=== PATIENT | female | born 1940 | race Caucasian/White ===

== ENCOUNTER 2019-04-19 08:05 | Inpatient (IN) | payer OTHER ==
--- NOTE | 2019-04-19 08:20 | PDOC ---
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 Pt states she got tried to get up from sleeping during the night to go to the bathroom, and experienced the vertigo until she went back to sleep. The symptom continued this morning in the same fashion, so she called her son to bring her to the ER. Pt denies recent decreased PO intake, but endorses recent dysuria. Pt denies history of vertigo. Pt denies any recent fevers/chills, ear pain or drainage, headache, vision changes, syncope, chest pain, palpitations, SOB, nausea/vomiting, abdominal pain, diarrhea/constipation, or leg swelling. Allergies: NKDA PCP: Dr. Eligio Cope Social: Pt denies any cigarette, alcohol, or drug use. Pt denies any recent travel or sick contacts. Surgical: no relevant history. Family: no relevant history. 04/19/19 08:47 Past History - Travel Traveled outside of the country in the last 30 days: No Close contact w/someone who was outside of country & ill: No - Past Medical History Allergies/Adverse Reactions: Allergies Allergy/AdvReac Type Severity Reaction Status Date / Time No Known Allergies Allergy Verified 04/19/19 08:10 Home Medications: Ambulatory Orders Unobtainable 04/19/19 COPD: No Diabetes: Yes HTN: Yes Hypercholesterolemia: Yes - Suicide/Smoking/Psychosocial Hx Smoking History: Never smoked Review of Systems - Review of Systems Able to Perform ROS?: Yes Is the patient limited Togolese proficient: No Constitutional: Yes: Weight Stable. No: Chills, Diaphoresis, Fever, Loss of Appetite, Malaise, Weakness HEENTM: No: Blurred Vision, Double Vision, Ear Pain, Ear Discharge, Nose Congestion, Throat Pain, Throat Swelling, Difficulty Swallowing Respiratory: No: Cough, Orthopnea, Shortness of Breath Cardiac (ROS): No: Chest Pain, Edema, Irregular Heart Rate, Lightheadedness, Palpitations, Syncope, Chest Tightness ABD/GI: No: Constipated, Diarrhea, Nausea, Poor Appetite, Poor Fluid Intake, Vomiting : Yes: Burning, Dysuria, Pain. No: Discharge, Frequency, Hematuria, Incontinence, Urgency Musculoskeletal: No: Back Pain, Joint Pain, Muscle Pain, Muscle Weakness Integumentary: No: Rash Neurological: Yes: See HPI, Dizziness (vertigo). No: Headache, Numbness, Paresthesia, Pre-Existing Deficit, Seizure, Weakness, Unsteady Gait, Ataxia Psychiatric: No: Sleep Pattern Change, Change in Appetite Endocrine: No: Increased Urine, Change in Weight Hematologic/Lymphatic: No: Anemia, Blood Clots, Easy Bleeding, Easy Bruising All Other Systems: Reviewed and Negative *Physical Exam - Vital Signs Last Vital Signs Temp Pulse Resp BP Pulse Ox 97.8 F 73 18 149/62 97 04/19/19 08:08 04/19/19 08:08 04/19/19 08:08 04/19/19 08:08 04/19/19 08:08 - Physical Exam Comments: Vitals stable, pt afebrile. Pt appears uncomfortable, normal body habitus. Pt alert and oriented x3. raw stock machine feeder generally intact, muscular strength and sensation intact. Cerebellar exam WNL. No midline spinal tenderness, step-offs, or crepitus. Head normocephalic, atraumatic. Eyes PERRLA, EOMI. No nystagmus or saccade noted. Oropharynx without erythema or exudates, no LAD b/l. No nasal congestion. Cerumen present in R ear, left ear with clear TM. Hearing intact b/l. Clear heart sounds, S1/S2, no JVD, b/l pedal edema, or heart murmur. Clear lung sounds, no respiratory distress, wheezes, crackles, or accessory muscle use. No abdominal or CVA tenderness to palpation, no rebound, no guarding. Abdomen soft, non-distended, and with normoactive bowel sounds. Varicose veins on b/l LE to knee. Skin without jaundice or rash. 04/19/19 08:56 ED Treatment Course - LABORATORY CBC & Chemistry Diagram: 04/19/19 09:05 04/19/19 09:05 Medical Decision Making - Medical Decision Making Pt was seen at bedside, also will be seen by attending Dr. Monaco. Pt presenting with complaints of new-onset vertigo when standing from a lying position. No FNDs on exam. Pts vertigo improved with bedside Janet maneuver. More likely peripheral vertigo considering exam, but will proceed with work-up for electrolyte imbalances, anemia, cardiac enzymes, and non-contrast CT head to evaluate for possible bleed or ischemia. Provided 25 mg PO meclizine and 1 L IV NS for improvement of vertigo. Will continue to reassess pt and monitor for symptomatic improvement. ECG: NSR with 1st degree AV block, intervals WNL (HR 73, DE 210, QRS 78, QTc 434 ). No TWIs or significant ST segment changes. No prior ECG. 04/19/19 08:58 UA negative for infection. Pt taken for head CT Pt states vertigo improved after meclizine and fluids. 04/19/19 09:[address] head with no acute pathology. Pt provided additional 25 mg PO meclizine for continued vertigo. 04/19/19 10:08 CBC WNL Trop <.03 Pt states vertigo improved but still with mild symptoms. Providing 5 mg PO valium. Will reassess. 04/19/19 12:41 Pt did not improve with valium and still unable to ambulate without significant assistance. Pt admitted to Dr. Taveras (admits for Dr. Eligio Cope). 04/19/19 14:17 *DC/Admit/Observation/Transfer Diagnosis at time of Disposition: Vertigo - Discharge Dispostion Condition at time of disposition: Stable Decision to Admit order: Yes - Referrals - Patient Instructions - Post Discharge Activity
[2019-04-19] MEDS ORDERED: MECLIZINE HCL 25 MG TABLET (FP) PO ONE ×2 (08:22→10:24)
[2019-04-19] MEDS ORDERED: MECLIZINE HCL 25 MG TABLET (FP) ONE ×2 (08:23→08:31)
[2019-04-19] MEDS ORDERED: SODIUM CHLORIDE 1,000 ML IV STA (08:40)
--- NOTE | 2019-04-19 08:58 | PDOC ---
Attending Attestation - Resident Resident Name: Precious Holloway - ED Attending Attestation I have performed the following: I have examined & evaluated the patient, The case was reviewed & discussed with the resident, I agree w/resident's findings & plan, Exceptions are as noted - HPI HPI: 78 yo F history HTN, DM presenting with vertiginous symptoms that started at 2am this morning. She states she feels dizzy, as if room is spinning, worse with rightward gaze. No prior similar symptoms. Denies ear pain, tinnitus, headache. No recent trauma. No prior history of CVA. - Physicial Exam PE: GENERAL: Awake, alert, and fully oriented, in no acute distress HEAD: No signs of trauma EYES: PERRLA, EOMI, sclera anicteric, conjunctiva clear ENT: Auricles normal inspection, hearing grossly normal, nares patent, oropharynx clear without exudates. Moist mucosa NECK: Normal ROM, supple, no lymphadenopathy, JVD, or masses LUNGS: Breath sounds equal, clear to auscultation bilaterally. No wheezes, and no crackles HEART: Regular rate and rhythm, normal S1 and S2, no murmurs, rubs or gallops ABDOMEN: Soft, nontender, normoactive bowel sounds. No guarding, no rebound. No masses EXTREMITIES: Normal range of motion, no edema. No clubbing or cyanosis. No cords, erythema, or tenderness NEUROLOGICAL: Cranial nerves II through XII grossly intact. Normal speech. Motor and sensation intact. Symptoms elicited upon rightward gaze SKIN: Warm, dry, normal turgor, no rashes or lesions noted. - Medical Decision Making Pt presents with abrupt onset vertigo. Although CVA is unlikely, will obtain CTH due to patient age and comorbidities. Will obtain labs, give IVF and meclizine.
[2019-04-19 09:28] LABS: BASO % 0.3 % (0-2.0); EOS % 1.7 % (0-4.5); HEMATOCRIT 36.9 % (32.4-45.2); HEMOGLOBIN 11.8 GM/dL (10.7-15.3); LYMPH % 18.4 % (8-40); MCH 24.8 pg (25.7-33.7); MCHC 32.1 g/dl (32.0-36.0); MEAN PLT VOLUME 11.9 fl (7.5-11.1); NEUT % 72.6 % (42.8-82.8); PLATELET COUNT 185 K/MM3 (134-434); RBC 4.78 M/mm3 (3.60-5.2); RDW 15.9 % (11.6-15.6); WHITE BLOOD COUNT 5.8 K/mm3 (4.0-10.0)
[2019-04-19 09:30] LABS: URINE APPEARANCE CLEAR; URINE BILIRUBIN NEGATIVE (NEGATIVE); URINE COLOR YELLOW; URINE GLUCOSE (UA) 3+ (NEGATIVE); URINE KETONE NEGATIVE (NEGATIVE); URINE LEUK ESTERASE NEGATIVE (NEGATIVE); URINE NITRITE NEGATIVE (NEGATIVE); URINE PROTEIN NEGATIVE (NEGATIVE); URINE UROBILINOGEN 0.2 mg/dL (0.2-1.0)
[2019-04-19 09:52] LABS: ALBUMIN 3.4 g/dl (3.4-5.0); BILIRUBIN,TOTAL 0.5 mg/dL (0.2-1); BLOOD UREA NITROGEN 15.5 mg/dL (7-18); CALCIUM 8.9 mg/dL (8.5-10.1); CREATININE 0.5 mg/dL (0.55-1.3); MAGNESIUM 1.8 mg/dL (1.8-2.4); TOT PROT 6.8 g/dl (6.4-8.2)
--- NOTE | 2019-04-19 10:17 | EKG ---
Test Reason : Blood Pressure : / mmHG Vent. Rate : 073 BPM Atrial Rate : 073 BPM P-R Int : 210 ms QRS Dur : 078 ms QT Int : 394 ms P-R-T Axes : 005 -05 019 degrees QTc Int : 434 ms SINUS RHYTHM WITH 1ST DEGREE A-V BLOCK WITH OCCASIONAL PREMATURE VENTRICULAR COMPLEXES MINIMAL VOLTAGE CRITERIA FOR LVH, MAY BE NORMAL VARIANT CANNOT RULE OUT ANTERIOR INFARCT , AGE UNDETERMINED ABNORMAL ECG NO PREVIOUS ECGS AVAILABLE Confirmed by Domitila Yadav ([id number]) on 04/19/2019 10:17:01 AM Referred By: Confirmed By:Domitila Yadav
[2019-04-19 11:18] LABS: INR 1.02 (0.83-1.09)
[2019-04-19] MEDS ORDERED: diazePAM 5 MG TABLET PO ONE (12:41)
[2019-04-19] MEDS ORDERED: diazePAM 5 MG TABLET ONE (13:05)
[2019-04-19 16:52] VITALS: BMI 28.3
[2019-04-19] MEDS ORDERED: MECLIZINE HCL 25 MG TABLET (FP) PO PRN (22:55)
--- NOTE | 2019-04-19 22:57 | HP ---
Admitting History and Physical - Smoking History Smoking history: Never smoked Home Medications - Allergies Allergies/Adverse Reactions: Allergies Allergy/AdvReac Type Severity Reaction Status Date / Time No Known Allergies Allergy Verified 04/19/19 08:10 - Home Medications Home Medications: Ambulatory Orders Unobtainable 04/19/19 Physical Examination Vital Signs: Vital Signs Temperature 98 F 04/19/19 19:42 Pulse Rate 68 04/19/19 19:42 Respiratory Rate 18 04/19/19 19:42 Blood Pressure 128/58 L 04/19/19 19:42 O2 Sat by Pulse Oximetry (%) 98 04/19/19 12:30 Labs: CBC, BMP 04/19/19 09:05 04/19/19 09:05
[2019-04-19] MEDS: DEXTROSE 5%-0.45% SALINE 1,000 ML IV SCH (23:55)
[2019-04-20] MEDS: INSULIN SLIDING SCALE (NOVOLOG) 1 VIAL SQ SCH ×4 (06:56→22:13)
[2019-04-20 07:19] LABS: ALBUMIN 3.2 g/dl (3.4-5.0); BILIRUBIN,TOTAL 0.6 mg/dL (0.2-1); CALCIUM 8.8 mg/dL (8.5-10.1); CREATININE 0.5 mg/dL (0.55-1.3); POTASSIUM 4.2 mmol/L (3.5-5.1); TOT PROT 6.5 g/dl (6.4-8.2)
[2019-04-20 07:58] LABS: BASO % 0.4 % (0-2.0); EOS % 2.8 % (0-4.5); HEMATOCRIT 36.2 % (32.4-45.2); HEMOGLOBIN 11.7 GM/dL (10.7-15.3); LYMPH % 26.8 % (8-40); MCH 24.8 pg (25.7-33.7); MCHC 32.3 g/dl (32.0-36.0); MEAN CELL VOLUME 76.8 fl (80-96); MEAN PLT VOLUME 11.4 fl (7.5-11.1); MONO % 8.8 % (3.8-10.2); NEUT % 61.2 % (42.8-82.8); PLATELET COUNT 182 K/MM3 (134-434); RBC 4.72 M/mm3 (3.60-5.2); RDW 15.4 % (11.6-15.6)
--- NOTE | 2019-04-20 10:11 | CONSULT ---
Consult - text type - Consultation Consultation Note: NEUROLOGY CONSULT GREATLY APPRECIATED: Events reviewed and discussed with nursing staff. Ambulates with cane. This 78 yo Persian-speaking woman with HTN, HLD, DM. Unknown meds at home. Per ED notes, pt had "dizziness" at 2 am that was positional in nature from sitting to standing. This recurred in AM, prompted her to ED. She was provided meclizine and valium with minimal relief of systems. No mention of nausea. Epply maneuver performed in ED. Today ambulating independently and no longer with "dizziness." CT of head (reviewed): Mod diffuse cerebral atrophy with deep sulci and mild ex vacuo ventricular dilation. EKG sinus rhythm with 1st degree AV block Carotid duplex: Multiple, moderate scattered plaques at both common carotids and bifurcations without heme sig stenosis MRI of Brain (incomplete sequences, not yet reported): Mild, diffuse atrophy. No acute/subacute ischemic changes MCV 77; WBC 5.6; UA neg BUT UC > 100,000 Strep. BP supine 122/59, sitting 132/88, standing 148/56 JA: Cor reg. No bruit. Neck supple. Neg SLR. Varicoses. - Anuj's. NEURO: Awake, alert, cooperative. Follows commands. +glabella. CNII-CNXII: EOM's full without nystagmus. Full huffman. No facial. Gag ok. Motor: Min R drift. Decreased JAS's L > R. Strength normal. Reflexes normal in arms, reduced at KJ's and absent AJ's. Plantars silent. Coordination: No FTN dystaxia Sensation: Reduced vibration up to ankles. Romberg - Gait: Flexed, sl shuffle. Antalgic L knee. Impression: Moderate B/L cerebral Dysfunction (OMS, likely chronic) Transient, episodic, "Dizziness" possibly on a labyrinthine basis. No suggestion of cerebrovascular contribution. 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 R/O LS spinal stenosis. Possible L knee arthropathy Worsened by Toxic-Metabolic Encephalopathy (Possible UTI?) Suggest: Additional history from son and family. Low threshold for antibiotics and hydration for UTI Observe off Meclizine Check TSH, B12, RPR, A1c, ESR, CRP for possible, mild, OMS PT eval for gait safety with walker Consider ortho opinion Re: L knee Geology Instructor eval for home safety check Thank you very much, Cleve Pina MD
[2019-04-20] MEDS: HEPARIN NA (PORCINE) 5,000 UNITS/ML 1ML VIAL SQ SCH ×2 (10:29→22:08)
[2019-04-20] MEDS ORDERED: CEFTRIAXONE 1 GM in DEXTROSE 5%-WATER - 100 ML IVPB SCH (18:45)
[2019-04-20] MEDS ORDERED: CEFTRIAXONE 1 GM in DEXTROSE 5%-WATER 100 ML IVPB SCH (20:03)
[2019-04-20] MEDS ORDERED: DEXTROSE 5%-WATER 100 ML IVPB ONE (20:24)
[2019-04-20] MEDS ORDERED: cefTRIAXone SODIUM 1 GM VIAL ONE (20:24)
[2019-04-20] MEDS: CEFTRIAXONE 1 GM in DEXTROSE 5%-WATER 100 ML IVPB SCH (20:28)
[2019-04-20] MEDS: LEVOTHYROXINE NA 50 MCG TABLET (FP) PO SCH (20:30)
[2019-04-20] MEDS: ASPIRIN 81 MG CHEWABLE TABLETS PO SCH (20:30)
[2019-04-20] MEDS ORDERED: ROSUVASTATIN CA 10 MG TABLET (FP) PO SCH (22:00)
[2019-04-20] MEDS: DEXTROSE 5%-0.45% SALINE 1,000 ML IV SCH (22:10)
--- NOTE | 2019-04-20 23:31 | PN ---
Progress Note, Physician - Current Medication List Current Medications: Active Medications Aspirin (Asa -) 81 mg PO DAILY [facility] Last Admin: 04/20/19 20:30 Dose: 81 mg Heparin Sodium (Porcine) (Heparin -) 5,000 unit SQ BID [facility] Last Admin: 04/20/19 22:08 Dose: 5,000 unit Dextrose/Sodium Chloride (D5-1/2ns -) 1,000 mls @ 75 mls/hr IV [facility]IR [facility] Last Admin: 04/20/19 22:10 Dose: 75 mls/hr Ceftriaxone Sodium 1 gm/ (Dextrose) 100 mls @ 200 mls/hr IVPB DAILY [facility]; Protocol Last Admin: 04/20/19 20:28 Dose: 200 mls/hr Insulin Aspart (Novolog Vial Sliding Scale -) 1 vial SQ ACHS [facility]; Protocol Last Admin: 04/20/19 22:13 Dose: 4 unit Levothyroxine Sodium (Synthroid -) 50 mcg PO DAILY@0700 [facility] Last Admin: 04/20/19 20:30 Dose: 50 mcg Rosuvastatin Calcium (Crestor -) 10 mg PO HS [facility] Last Admin: 04/20/19 22:08 Dose: 10 mg - Objective Vital Signs: Vital Signs Temperature 97.7 F 04/20/19 14:00 Pulse Rate 77 04/20/19 14:00 Respiratory Rate 18 04/20/19 14:00 Blood Pressure 132/73 04/20/19 14:00 O2 Sat by Pulse Oximetry (%) 97 04/19/19 21:00 Labs: CBC, BMP 04/20/19 05:43 04/20/19 05:43 INR, PTT INR 1.02 (0.83-1.09) 04/19/19 09:05 Problem List - Problems (1) UTI (urinary tract infection) Code(s): N39.0 - URINARY TRACT INFECTION, SITE NOT SPECIFIED (2) HTN (hypertension) Code(s): I10 - ESSENTIAL (PRIMARY) HYPERTENSION (3) HLD (hyperlipidemia) Code(s): E78.5 - HYPERLIPIDEMIA, UNSPECIFIED (4) Diabetes Code(s): E11.9 - TYPE 2 DIABETES MELLITUS WITHOUT COMPLICATIONS (5) Vertigo Code(s): R42 - DIZZINESS AND GIDDINESS
[2019-04-21 06:36] VITALS: TEMP 97.6
[2019-04-21] MEDS: INSULIN SLIDING SCALE (NOVOLOG) 1 VIAL SQ SCH ×2 (06:41→12:15)
[2019-04-21] MEDS: LEVOTHYROXINE NA 50 MCG TABLET (FP) PO SCH (06:41)
[2019-04-21] MEDS ORDERED: ACETAMINOPHEN 325 MG TABLET (FP) PO PRN (06:54)
[2019-04-21] MEDS ORDERED: AMOX TR/POT CLAV 875MG/125MG TABLETS (FP) PO ONE (11:15)
--- NOTE | 2019-04-21 11:42 | PN ---
Progress Note (short form) - Note Progress Note: NEUROLOGY PROGRESS: Events reviewed and discussed with staff. Daughter Eriberto on the phone provides additional history. Mom lives with her , however Eriberto assists with cooking, cleaning and bills in the home. Pt reports "occasional" headaches, including one the evening before being admitted in the "back of her head," requiring her to lie down. Daughter notes she herself also suffers from headaches. Today ambulating with cane independently and no longer with "dizziness." C/O right knee pains while walking. ESR 19 A1C= 7.9 TSH 5.06 B12= 178! Iron 39, Iron sat 14% NEURO: Awake, alert, responsive. + glabella Symmetric grasps. Reflexes in arms, reduced at KJ's and AJ's. Gait: Flexed, sl shuffle. Impression: Mild B/L Cerebral Dysfunction (OMS, chronic) Migraine Headaches (likely vertebrobasilar in nature) Peripheral Neuropathy (c/w DM, B12 deficiency) Worsened by Toxic-Metabolic Encephalopathy (UTI, hypothyroidism Suggest: Continue antibiotics and hydration for UTI Endocrinology consult to evaluate Rx for hypothyroidism Add B12 supplementation Neuro f/u as outpatient for Migraines Rx and workup of neuropathy Thank you very much, Cleve Pina MD
[2019-04-21] MEDS: HEPARIN NA (PORCINE) 5,000 UNITS/ML 1ML VIAL SQ SCH (12:03)
[2019-04-21] MEDS: ASPIRIN 81 MG CHEWABLE TABLETS PO SCH (12:04)
[2019-04-21] MEDS: CEFTRIAXONE 1 GM in DEXTROSE 5%-WATER 100 ML IVPB SCH (12:04)
[2019-04-21 12:33] VITALS: BP 138/63; PULSE 71
== END 2019-04-21 14:18 | disposition home or self-care (01) | DRG 689 ==
LOC: JER 08:05 → JERBED 14:01 → J8W 15:55
PROVIDERS: ADMIT Internal Medicine; ATTEND Internal Medicine
DX: N39.0 Urinary tract infection, site not specified (principal); G93.41 Metabolic encephalopathy; R42 Dizziness and giddiness; I10 Essential (primary) hypertension; E78.5 Hyperlipidemia, unspecified; E11.9 Type 2 diabetes mellitus without complications; G62.9 Polyneuropathy, unspecified; E03.9 Hypothyroidism, unspecified
CPT/HCPCS: 36415; 70450-TC; 70551-TC; 80053; 81003; 82550; 82607; 82962; 83036; 83540; 83550; 83735; 84443; 84484; 85025; 85610; 85651; 86140; 86593; 87077; 87086; 93005; 93010; 93880-TC; 97116-GP; 97161-GP; 99284-25; J1644; J7030

== ENCOUNTER → 2022-11-07 | Day surgery (SDC) | payer OTHER | END | disposition home or self-care (01) | LOC: JRADUS-SUR 11:10 | PROVIDERS: ATTEND Registered Nurse | PROC: 0H9V3ZX Drainage of Bilateral Breast, Percutaneous Approach, Diagnostic (ICD-10-PCS; principal; 2022-11-07) | PROC: 07963ZX Drainage of Left Axillary Lymphatic, Percutaneous Approach, Diagnostic (ICD-10-PCS; 2022-11-07) | DX: N63.20 Unspecified lump in the left breast, unspecified quadrant (principal); N63.10 Unspecified lump in the right breast, unspecified quadrant; C50.912 Malignant neoplasm of unspecified site of left female breast; C50.911 Malignant neoplasm of unspecified site of right female breast; C79.89 Secondary malignant neoplasm of other specified sites; Z17.0 Estrogen receptor positive status [ER+] | CPT/HCPCS: 19083; 19084; 77066-TC; 87899; 88305-TC; 88341-TC; 88342-TC; A4648 ==

== ENCOUNTER 2022-12-13 13:15 | Day surgery (SDC) | payer OTHER ==
[~2022-12-13 13:15] MED LIST: CYANOCOBALAMIN (VITAMIN B-12) 1000 MCG/1 ML VIAL IM ONE; IRON SUCROSE INJECTION 200 MG in SODIUM CHLORIDE 100 ML IVPB ONE
[2022-12-13 18:22] VITALS: TEMP 97.8
[2022-12-13 18:27] VITALS: BP 142/73; PULSE 73; RESP 18
== END 2022-12-13 15:45 | disposition home or self-care (01) ==
LOC: JONCNONCHE 13:15
PROVIDERS: ATTEND Internal Medicine Hematology & Oncology
PROC: 3E033GC Introduction of Other Therapeutic Substance into Peripheral Vein, Percutaneous Approach (ICD-10-PCS; principal; 2022-12-13)
PROC: 3E013GC Introduction of Other Therapeutic Substance into Subcutaneous Tissue, Percutaneous Approach (ICD-10-PCS; 2022-12-13)
DX: D50.9 Iron deficiency anemia, unspecified (principal)
CPT/HCPCS: 96365; 96372; J1756

== ENCOUNTER 2022-12-20 09:18 | Day surgery (SDC) | payer OTHER ==
[2022-12-20 15:20] VITALS: BP 127/53; PULSE 91; RESP 20; TEMP 97.9
== END 2022-12-20 13:00 | disposition home or self-care (01) ==
LOC: JONCNONCHE 09:18
PROVIDERS: ATTEND Internal Medicine Hematology & Oncology
PROC: 3E033GC Introduction of Other Therapeutic Substance into Peripheral Vein, Percutaneous Approach (ICD-10-PCS; principal; 2022-12-20)
DX: D50.9 Iron deficiency anemia, unspecified (principal)
CPT/HCPCS: 96365; J1756

== ENCOUNTER 2022-12-27 10:21 | Day surgery (SDC) | payer OTHER ==
[2022-12-27 14:12] VITALS: TEMP 98.1
[2022-12-27 14:13] VITALS: BP 138/59; PULSE 74; RESP 20
== END 2022-12-27 12:00 | disposition home or self-care (01) ==
LOC: JONCNONCHE 10:21
PROVIDERS: ATTEND Internal Medicine Hematology & Oncology
PROC: 3E033GC Introduction of Other Therapeutic Substance into Peripheral Vein, Percutaneous Approach (ICD-10-PCS; principal; 2022-12-27)
DX: D50.9 Iron deficiency anemia, unspecified (principal)
CPT/HCPCS: 96365; J1756

== ENCOUNTER 2023-01-03 08:46 | Day surgery (SDC) | payer OTHER ==
[2023-01-03] MEDS ORDERED: IRON SUCROSE INJECTION 200 MG in SODIUM CHLORIDE 100 ML IVPB ONE (10:00)
[2023-01-03] MEDS ORDERED: CYANOCOBALAMIN (VITAMIN B-12) 1000 MCG/1 ML VIAL IM ONE (10:00)
[2023-01-03 14:16] VITALS: BP 126/61; PULSE 81; RESP 20; TEMP 97.6
== END 2023-01-03 09:50 | disposition home or self-care (01) ==
LOC: JONCNONCHE 08:46
PROVIDERS: ATTEND Internal Medicine Hematology & Oncology
PROC: 3E033GC Introduction of Other Therapeutic Substance into Peripheral Vein, Percutaneous Approach (ICD-10-PCS; principal; 2023-01-03)
DX: D50.9 Iron deficiency anemia, unspecified (principal)
CPT/HCPCS: 96365; J1756

== ENCOUNTER 2023-01-05 15:02 | Emergency (ER) | payer OTHER ==
[2023-01-05 15:13] VITALS: BP 148/97; PULSE 80; RESP 18; TEMP 98; BMI 31.2
== END 2023-01-05 16:25 | disposition home or self-care (01) ==
LOC: FER 15:02
PROC: 2W3CX1Z Immobilization of Right Lower Arm using Splint (ICD-10-PCS; principal; 2023-01-05)
DX: S52.531A Colles' fracture of right radius, initial encounter for closed fracture (principal); W01.0XXA Fall on same level from slipping, tripping and stumbling without subsequent striking against object, initial encounter; Y92.019 Unspecified place in single-family (private) house as the place of occurrence of the external cause
CPT/HCPCS: 29125; 73110-TC-RT-FY; 73130-TC-RT-FY; 99283-25

== ENCOUNTER 2023-09-15 12:59 | Emergency (ER) | payer OTHER ==
[2023-09-15 13:10] VITALS: BP 117/60; PULSE 77; RESP 17; TEMP 98.3; BMI 25.4
[2023-09-15] MEDS ORDERED: LIDOCAINE VISCOUS 2% ORAL/TOP 15 ML UNIT-DOSE CUP MM ONE (13:35)
== END 2023-09-15 14:29 | disposition home or self-care (01) ==
LOC: FER 12:59
DX: J02.9 Acute pharyngitis, unspecified (principal); U07.1 COVID-19
CPT/HCPCS: 0241U-QW; 87651; 99283-25

== ENCOUNTER 2024-07-02 10:44 | Day surgery (SDC) | payer OTHER ==
[2024-07-02] MEDS: FULVESTRANT 250 MG/5 ML SYRINGE IM ONE (11:06)
[2024-07-02 15:56] VITALS: BP 155/70; PULSE 85; RESP 20; TEMP 97.6
== END 2024-07-02 11:30 | disposition home or self-care (01) ==
LOC: JONCCHEMO 10:44 → J7W 10:49 → JONCCHEMO 11:30
PROVIDERS: ATTEND Internal Medicine Hematology & Oncology
DX: Z51.11 Encounter for antineoplastic chemotherapy (principal); C50.919 Malignant neoplasm of unspecified site of unspecified female breast
CPT/HCPCS: 96402; J9395

== ENCOUNTER 2024-07-16 09:54 | Day surgery (SDC) | payer OTHER ==
[2024-07-16] MEDS: IRON SUCROSE INJECTION 200 MG in SODIUM CHLORIDE 100 ML IVPB ONE (10:19)
[2024-07-16] MEDS: FULVESTRANT 250 MG/5 ML SYRINGE IM ONE (11:05)
[2024-07-16 16:10] VITALS: RESP 16; TEMP 97.9
[2024-07-16 16:12] VITALS: BP 145/54; PULSE 70
== END 2024-07-16 11:30 | disposition home or self-care (01) ==
LOC: JONCCHEMO 09:54 → J7W 09:59 → JONCCHEMO 11:30
PROVIDERS: ATTEND Internal Medicine Hematology & Oncology
PROC: 3E01305 Introduction of Other Antineoplastic into Subcutaneous Tissue, Percutaneous Approach (ICD-10-PCS; principal; 2024-07-16)
PROC: 3E033GC Introduction of Other Therapeutic Substance into Peripheral Vein, Percutaneous Approach (ICD-10-PCS; 2024-07-16)
DX: Z51.11 Encounter for antineoplastic chemotherapy (principal); C50.919 Malignant neoplasm of unspecified site of unspecified female breast; D64.9 Anemia, unspecified
CPT/HCPCS: 96365; 96402; J1756; J9395

== ENCOUNTER 2024-07-23 09:59 | Day surgery (SDC) | payer OTHER ==
[2024-07-23] MEDS: IRON SUCROSE INJECTION 200 MG in SODIUM CHLORIDE 100 ML IVPB ONE (10:15)
[2024-07-23 10:17] VITALS: BP 137/60; PULSE 85; RESP 20; TEMP 97.8
== END 2024-07-23 11:15 | disposition home or self-care (01) ==
LOC: JONCCHEMO 09:59 → J7W 10:00 → JONCCHEMO 11:15
PROVIDERS: ATTEND Internal Medicine Hematology & Oncology
PROC: 3E033GC Introduction of Other Therapeutic Substance into Peripheral Vein, Percutaneous Approach (ICD-10-PCS; principal; 2024-07-23)
DX: D64.9 Anemia, unspecified (principal); C50.919 Malignant neoplasm of unspecified site of unspecified female breast
CPT/HCPCS: 96365; J1756

== ENCOUNTER 2024-07-30 12:31 | Day surgery (SDC) | payer OTHER ==
[2024-07-30] MEDS: IRON SUCROSE INJECTION 200 MG in SODIUM CHLORIDE 100 ML IVPB ONE (12:47)
[2024-07-30] MEDS: FULVESTRANT 250 MG/5 ML SYRINGE IM ONE (13:37)
[2024-07-30 15:56] VITALS: PULSE 76; TEMP 97.7
[2024-07-30 16:03] VITALS: RESP 20
[2024-07-30 16:10] VITALS: BP 135/60
== END 2024-07-30 13:50 | disposition home or self-care (01) ==
LOC: J7W 12:31 → JONCCHEMO 12:31
PROVIDERS: ATTEND Internal Medicine Hematology & Oncology
DX: Z51.11 Encounter for antineoplastic chemotherapy (principal); C50.919 Malignant neoplasm of unspecified site of unspecified female breast
CPT/HCPCS: 96401; J1756; J9395

== ENCOUNTER 2024-08-06 10:18 | Day surgery (SDC) | payer OTHER ==
[2024-08-06] MEDS: IRON SUCROSE INJECTION 200 MG in SODIUM CHLORIDE 100 ML IVPB ONE (10:51)
[2024-08-06 16:56] VITALS: BP 141/60; PULSE 78; RESP 18; TEMP 97.5
== END 2024-08-06 11:50 | disposition home or self-care (01) ==
LOC: JONCCHEMO 10:18 → J7W 10:28 → JONCCHEMO 11:50
PROVIDERS: ATTEND Internal Medicine Hematology & Oncology
PROC: 3E033GC Introduction of Other Therapeutic Substance into Peripheral Vein, Percutaneous Approach (ICD-10-PCS; principal; 2024-08-06)
DX: D64.9 Anemia, unspecified (principal); C50.919 Malignant neoplasm of unspecified site of unspecified female breast; Z17.0 Estrogen receptor positive status [ER+]
CPT/HCPCS: 96365; J1756

== ENCOUNTER 2024-08-27 13:11 | Day surgery (SDC) | payer OTHER ==
[2024-08-27] MEDS: FULVESTRANT 250 MG/5 ML SYRINGE IM ONE (13:19)
[2024-08-27 18:15] VITALS: BP 146/66; PULSE 74; RESP 18; TEMP 97.3
== END 2024-08-27 13:40 | disposition home or self-care (01) ==
LOC: J7W 13:11 → JONCCHEMO 13:11
PROVIDERS: ATTEND Internal Medicine Hematology & Oncology
DX: Z51.11 Encounter for antineoplastic chemotherapy (principal); C50.919 Malignant neoplasm of unspecified site of unspecified female breast
CPT/HCPCS: 96401; J9395

== ENCOUNTER 2024-09-24 11:58 | Day surgery (SDC) | payer OTHER ==
[2024-09-24] MEDS: FULVESTRANT 250 MG/5 ML SYRINGE IM ONE (12:10)
[2024-09-24 16:55] VITALS: BP 132/55; PULSE 78; RESP 20; TEMP 98.1
== END 2024-09-24 12:30 | disposition home or self-care (01) ==
LOC: JONCNONCHE 11:58
PROVIDERS: ATTEND Internal Medicine Hematology & Oncology
DX: Z51.11 Encounter for antineoplastic chemotherapy (principal); C50.919 Malignant neoplasm of unspecified site of unspecified female breast
CPT/HCPCS: 96402; J9395

== ENCOUNTER 2024-11-15 17:24 | Observation (INO) | payer OTHER ==
[2024-11-15 17:30] VITALS: RESP 18; BMI 35.0
[2024-11-15] MEDS ORDERED: MORPHINE SULFATE 2 MG/ML SYRINGE ONE (17:57)
[2024-11-15] MEDS ORDERED: ACETAMINOPHEN INJECTION 100 ML ONE (17:58)
[2024-11-15] MEDS: morphine CARPU-JECT 2 MG/1 ML DISP.SYRIN IVPUSH ONE (18:07)
[2024-11-15] MEDS: ACETAMINOPHEN 1000 MG/100 ML BAG IVPB ONE (18:08)
[2024-11-15 18:47] LABS: BASO % 0.3 % (0-2.0); EOS % 3.2 % (0-4.5); HEMATOCRIT 33.5 % (32.4-45.2); HEMOGLOBIN 10.8 GM/dL (10.7-15.3); LYMPH % 22.6 % (8-40); MCH 27.3 pg (25.7-33.7); MCHC 32.2 g/dl (32.0-36.0); MEAN CELL VOLUME 84.7 fl (80-96); MEAN PLT VOLUME 11.4 fl (7.5-11.1); MONO % 7.7 % (3.8-10.2); NEUT % 66.2 % (42.8-82.8); PLATELET COUNT 203 10^3/uL (134-434); RBC 3.96 M/mm3 (3.60-5.2); WHITE BLOOD COUNT 6.6 K/mm3 (4.0-10.0)
[2024-11-15] MEDS ORDERED: PIPERACILLIN/TAZOB 4.5 GM 4.5 GM/100 ML BAG IVPB ONE (18:48)
[2024-11-15] MEDS: PIPERACILLIN/TAZOB 4.5 GM 4.5 GM in DEXTROSE 5%-WATER 100 ML IVPB ONE (18:52)
[2024-11-15 19:03] LABS: POTASSIUM 4.8 mmol/L (3.5-5.1)
[2024-11-15 19:05] LABS: CALCIUM 8.9 mg/dL (8.5-10.1)
[2024-11-15 19:06] LABS: ALBUMIN 3.5 g/dl (3.4-5.0); BLOOD UREA NITROGEN 19.8 mg/dL (7-18)
[2024-11-15 19:10] LABS: CREATININE 0.9 mg/dL (0.55-1.3)
[2024-11-15 19:11] LABS: BILIRUBIN,TOTAL 0.3 mg/dL (0.2-1); TOT PROT 6.8 g/dl (6.4-8.2)
[2024-11-15] MEDS: VANCOMYCIN PREMIX 1.5 GM 1,500 MG/300 ML BAG IVPB ONE (20:05)
[2024-11-15] MEDS: VANCOMYCIN HCL 1,500 MG in DEXTROSE 5%-WATER - 500 ML IVPB ONE (20:58)
[2024-11-15] MEDS ORDERED: MORPHINE SULFATE 2 MG/ML SYRINGE IVPUSH PRN (21:01)
[2024-11-15] MEDS ORDERED: DOCUSATE SODIUM 100 MG CAPSULE (FP) PO PRN (21:01)
[2024-11-15] MEDS: INSULIN ASPART SLIDING SCALE (NOVOLOG) 1 VIAL SQ SCH (22:09)
[2024-11-16] MEDS ORDERED: ACETAMINOPHEN 325 MG TABLET (FP) PO PRN
[2024-11-16] MEDS ORDERED: CALCIUM CARBONATE PO SCH (04:15)
[2024-11-16] MEDS ORDERED: VITAMIN D3 PO SCH (04:15)
[2024-11-16] MEDS ORDERED: [UNRECOGNIZED DRUG - OTHER] PO SCH (04:15)
[2024-11-16 09:21] LABS: INR 1.11 (0.83-1.09); PROTHROMBIN TIME (PATIENT) 12.1 SEC (9.7-13.0)
[2024-11-16 09:24] LABS: ACTIVATED PTT 30.5 SECONDS (25.2-36.5)
[2024-11-16] MEDS: VANCOMYCIN 1 GM PREMIX (F) 1 GM/200 ML BAG IVPB SCH (09:49)
[2024-11-16 09:54] LABS: POTASSIUM 4.3 mmol/L (3.5-5.1)
[2024-11-16 10:21] LABS: CALCIUM 8.9 mg/dL (8.5-10.1)
[2024-11-16 10:22] LABS: BLOOD UREA NITROGEN 17.9 mg/dL (7-18); CREATININE 0.7 mg/dL (0.55-1.3); MAGNESIUM 1.3 mg/dL (1.8-2.4); PHOSPHOROUS 4.5 mg/dL (2.5-4.9)
[2024-11-16] MEDS: CYANOCOBALAMIN (VITAMIN B-12) 100 MCG TABLET PO SCH (11:00)
[2024-11-16] MEDS: FERROUS SO4 325 MG TABLET (FP) PO SCH (11:00)
[2024-11-16] MEDS: BACITRACIN ZINC 15 GM TUBE TOPICAL OINTMENT TP SCH (11:01)
[2024-11-16] MEDS: PIPERACILLIN/TAZOB 3.375 GM 50 ML IVPB SCH (11:02)
[2024-11-16] MEDS: ASCORBIC ACID 500 MG TABLET (FP) PO SCH (11:02)
[2024-11-16 11:23] LABS: HEMATOCRIT 31.8 % (32.4-45.2); HEMOGLOBIN 10.3 GM/dL (10.7-15.3); MCH 27.3 pg (25.7-33.7); MCHC 32.3 g/dl (32.0-36.0); MEAN CELL VOLUME 84.5 fl (80-96); MEAN PLT VOLUME 11.2 fl (7.5-11.1); PLATELET COUNT 183 10^3/uL (134-434); RBC 3.77 M/mm3 (3.60-5.2); WHITE BLOOD COUNT 5.4 K/mm3 (4.0-10.0)
[2024-11-16] MEDS: MAGNESIUM 1GM/D5W 100ML - 100 ML IVPB IVPB ONE (18:21)
[2024-11-16] MEDS: ATORVASTATIN CA 40 MG TABLET (FP) PO SCH (21:20)
[2024-11-17] MEDS: PIPERACILLIN/TAZOB 3.375 GM 50 ML IVPB SCH (02:24)
[2024-11-17 09:12] LABS: HEMOGLOBIN 11.1 GM/dL (10.7-15.3); MCH 27.3 pg (25.7-33.7); MCHC 32.5 g/dl (32.0-36.0); MEAN CELL VOLUME 83.9 fl (80-96); MEAN PLT VOLUME 11.2 fl (7.5-11.1); PLATELET COUNT 209 10^3/uL (134-434); RBC 4.05 M/mm3 (3.60-5.2); RDW 12.9 % (11.6-15.6); WHITE BLOOD COUNT 6.3 K/mm3 (4.0-10.0)
[2024-11-17 09:44] LABS: POTASSIUM 4.3 mmol/L (3.5-5.1)
[2024-11-17 09:46] LABS: CALCIUM 9.6 mg/dL (8.5-10.1)
[2024-11-17 09:47] LABS: ALBUMIN 3.4 g/dl (3.4-5.0); BLOOD UREA NITROGEN 23.8 mg/dL (7-18); MAGNESIUM 1.6 mg/dL (1.8-2.4)
[2024-11-17 09:50] LABS: CREATININE 0.8 mg/dL (0.55-1.3); PHOSPHOROUS 3.7 mg/dL (2.5-4.9)
[2024-11-17 09:52] LABS: BILIRUBIN,TOTAL 0.6 mg/dL (0.2-1); TOT PROT 6.7 g/dl (6.4-8.2)
[2024-11-17] MEDS: MAGNESIUM 1GM/D5W 100ML - 100 ML IVPB IVPB ONE (18:56)
[2024-11-18] MEDS ORDERED: PIPERACILLIN/TAZOB 3.375 GM 50 ML IVPB SCH (03:00)
[2024-11-18] MEDS ORDERED: VANCOMYCIN 1 GM PREMIX (F) 1 GM/200 ML BAG IVPB SCH (08:00)
[2024-11-18] MEDS: KETOROLAC TROMETHAMINE 15 MG/ML VIAL IVPUSH PRN (09:15)
[2024-11-18] MEDS: metroNIDAZOLE 0.75% TOPICAL GEL 45 GM TUBE TP SCH (09:16)
[2024-11-18] MEDS: AMOX TR/POT CLAV 875MG/125MG TABLETS (FP) PO SCH (16:56)
[2024-11-19 08:09] LABS: HEMATOCRIT 32.5 % (32.4-45.2); HEMOGLOBIN 10.4 GM/dL (10.7-15.3); MCH 27.3 pg (25.7-33.7); MCHC 32.1 g/dl (32.0-36.0); MEAN PLT VOLUME 11.5 fl (7.5-11.1); PLATELET COUNT 195 10^3/uL (134-434); RBC 3.82 M/mm3 (3.60-5.2); RDW 12.9 % (11.6-15.6); WHITE BLOOD COUNT 5.3 K/mm3 (4.0-10.0)
[2024-11-19 08:17] LABS: POTASSIUM 3.7 mmol/L (3.5-5.1)
[2024-11-19 08:45] LABS: ALBUMIN 3.3 g/dl (3.4-5.0); BLOOD UREA NITROGEN 20.4 mg/dL (7-18); MAGNESIUM 1.6 mg/dL (1.8-2.4)
[2024-11-19 08:48] LABS: CREATININE 0.5 mg/dL (0.55-1.3)
[2024-11-19 08:49] LABS: BILIRUBIN,TOTAL 0.7 mg/dL (0.2-1); TOT PROT 6.4 g/dl (6.4-8.2)
[2024-11-19] MEDS: MAGNESIUM 2GM/50ML STERILE WATER IVPB IVPB ONE (09:35)
[2024-11-19] MEDS: ACETAMINOPHEN 500 MG TABLET (FP) PO PRN (09:37)
[2024-11-19 10:55] VITALS: BP 111/46; PULSE 72; TEMP 98.4
== END 2024-11-19 11:31 | disposition home or self-care (01) ==
LOC: JER 17:24 → JERBED 17:57 → J7W 22:55
PROVIDERS: ADMIT Internal Medicine; ATTEND Family Medicine
PROC: 3E033NZ Introduction of Analgesics, Hypnotics, Sedatives into Peripheral Vein, Percutaneous Approach (ICD-10-PCS; principal; 2024-11-15)
PROC: 3E013VG Introduction of Insulin into Subcutaneous Tissue, Percutaneous Approach (ICD-10-PCS; 2024-11-15)
PROC: 3E0333Z Introduction of Anti-inflammatory into Peripheral Vein, Percutaneous Approach (ICD-10-PCS; 2024-11-15)
PROC: 3E033GC Introduction of Other Therapeutic Substance into Peripheral Vein, Percutaneous Approach (ICD-10-PCS; 2024-11-15)
PROC: 3E03329 Introduction of Other Anti-infective into Peripheral Vein, Percutaneous Approach (ICD-10-PCS; 2024-11-15)
DX: L03.818 Cellulitis of other sites (principal); B95.8 Unspecified staphylococcus as the cause of diseases classified elsewhere; C50.912 Malignant neoplasm of unspecified site of left female breast; C79.9 Secondary malignant neoplasm of unspecified site; G89.29 Other chronic pain; E11.9 Type 2 diabetes mellitus without complications; E78.00 Pure hypercholesterolemia, unspecified; I10 Essential (primary) hypertension; Z96.651 Presence of right artificial knee joint
CPT/HCPCS: 36415; 71045-TC-FY; 76642-TC-LT; 80048; 80053; 82962; 83735; 84100; 85025; 85027; 85610; 85651; 85730; 86140; 87070; 87076; 87186; 87205; 87529; 93005; 93010; 96365; 96366; 96367; 96372; 96375; 96376; 97116-GP; 97162-GP; 99285-25; G0378; J0131

== ENCOUNTER 2024-11-23 09:03 | Day surgery (SDC) | payer OTHER ==
[2024-11-23] MEDS: FULVESTRANT 250 MG/5 ML SYRINGE IM ONE (09:24)
[2024-11-23 09:43] VITALS: BP 135/61; PULSE 80; RESP 20; TEMP 97.8
[2024-11-23 10:12] LABS: BASO % 0.2 % (0-2.0); EOS % 2.7 % (0-4.5); HEMATOCRIT 32.8 % (32.4-45.2); HEMOGLOBIN 10.4 GM/dL (10.7-15.3); LYMPH % 17.1 % (8-40); MCH 26.9 pg (25.7-33.7); MCHC 31.8 g/dl (32.0-36.0); MEAN CELL VOLUME 84.6 fl (80-96); MEAN PLT VOLUME 11.6 fl (7.5-11.1); MONO % 6.8 % (3.8-10.2); NEUT % 73.2 % (42.8-82.8); PLATELET COUNT 221 10^3/uL (134-434); RBC 3.88 M/mm3 (3.60-5.2); RDW 13.3 % (11.6-15.6); WHITE BLOOD COUNT 6.5 K/mm3 (4.0-10.0)
[2024-11-23 10:57] LABS: CHLORIDE 106 mmol/L (98-107); POTASSIUM 4.4 mmol/L (3.5-5.1); SODIUM 138 mmol/L (136-145)
[2024-11-23 11:00] LABS: ALBUMIN 3.4 g/dl (3.4-5.0); ANION GAP 7 mmol/L (4-13); BLOOD UREA NITROGEN 15.7 mg/dL (7-18); CALCIUM 9.6 mg/dL (8.5-10.1); CO2 25 mmol/L (21-32); MAGNESIUM 1.4 mg/dL (1.8-2.4)
[2024-11-23 11:01] LABS: GLUCOSE,RANDOM 145 mg/dL (74-106)
[2024-11-23 11:03] LABS: CREATININE 0.6 mg/dL (0.55-1.3); IRON SERUM 32 ug/dL (50-175); SGOT/AST 12 U/L (15-37); SGPT/ALT 14 U/L (13-61); TOTAL IRON BINDING CAPACITY 184 ug/dL (250-450)
[2024-11-23 11:05] LABS: BILIRUBIN,TOTAL 0.4 mg/dL (0.2-1)
[2024-11-23 11:06] LABS: ALK PHOS 55 U/L (45-117)
[2024-11-23 12:33] LABS: TOT PROT 6.5 g/dl (6.4-8.2)
== END 2024-11-23 09:45 | disposition home or self-care (01) ==
LOC: JONCCHEMO 09:03 → J7W 09:04 → JONCCHEMO 09:45
PROVIDERS: ATTEND Internal Medicine Hematology & Oncology
DX: Z51.11 Encounter for antineoplastic chemotherapy (principal); C50.919 Malignant neoplasm of unspecified site of unspecified female breast; Z17.0 Estrogen receptor positive status [ER+]
CPT/HCPCS: 36415; 80053; 82306; 82378; 82607; 82728; 83540; 83550; 83735; 85025; 86300; 96402; J9395

== ENCOUNTER 2024-12-16 14:23 | Day surgery (SDC) | payer OTHER ==
[2024-12-16] MEDS: FULVESTRANT 250 MG/5 ML SYRINGE IM ONE (13:52)
[2024-12-16 17:48] VITALS: BP 111/33; PULSE 83; RESP 18; TEMP 98.2
== END 2024-12-16 15:00 | disposition home or self-care (01) ==
LOC: JONCCHEMO 14:23 → J7W 14:24 → JONCCHEMO 15:00
PROVIDERS: ATTEND Internal Medicine Hematology & Oncology
DX: Z51.11 Encounter for antineoplastic chemotherapy (principal); C50.919 Malignant neoplasm of unspecified site of unspecified female breast; Z17.0 Estrogen receptor positive status [ER+]
CPT/HCPCS: 96402; J9395